=== PATIENT | male | born 1985 | race African-American/Black ===

== ENCOUNTER 2016-11-13 05:23 | Inpatient (IN) | payer OTHER ==
[~2016-11-13] VITALS: Ht 188 cm; Wt 88.5 kg
[2016-11-13] MEDS ORDERED: ASPIRIN 81 MG TAB.CHEW ONE (05:34)
[2016-11-13] MEDS ORDERED: NITROGLYCERIN 0.4 MG/TAB BOTTLE ONE (05:34)
[2016-11-13] MEDS ORDERED: INSU100C10 SQ (05:49)
[2016-11-13] MEDS ORDERED: INSU100V7 SQ (05:49)
[2016-11-13] MEDS ORDERED: MORPHINE SULFATE INJ 4 MG/ML DISP.SYRIN ONE (05:50)
[2016-11-13] MEDS ORDERED: MORPHINE SULFATE INJ 2 MG/ML DISP.SYRIN ONE (05:50)
[2016-11-13] MEDS ORDERED: ONDANSETRON HCL/PF 4 MG/2 ML VIAL ONE (05:50)
[2016-11-13] MEDS ORDERED: IV SET PRIMARY 1 EA INFUS.SET MC ONE (05:53)
[2016-11-13] MEDS ORDERED: IV NS 0.9% 1,000 ML ONE (05:53)
[2016-11-13 05:55] LABS: ABG BASE EXCESS 0.7 mmol/L; ABG HCO3 27.3 mmol/L; ABG PCO2 50.5 mmHg (35.0-45.0); ABG PO2 35.6 mmHg (75.0-100.0); ABG TOTAL HEMOGLOBIN 15.8 G/dL (13.5-18.0); ALLEN TEST Pass; AaDO2 53.7 mmHg; O2Hb 62.8 % (94.0-97.0)
[2016-11-13] MEDS ORDERED: ASPIRIN 81 MG TAB.CHEW PO ONE (06:00)
[2016-11-13] MEDS ORDERED: MORPHINE SULFATE INJ 2 MG/ML DISP.SYRIN IV ONE (06:00)
[2016-11-13] MEDS ORDERED: NITROGLYCERIN 0.4 MG/TAB BOTTLE SL ONE (06:00)
[2016-11-13] MEDS ORDERED: ONDANSETRON HCL/PF 4 MG/2 ML VIAL IV ONE (06:00)
[2016-11-13] MEDS ORDERED: IV NS 0.9% 1,000 ML BAG IV ONE (06:00)
[2016-11-13 06:08] LABS: ANION GAP 15 (5-14); CALCIUM, SERUM 9.2 mg/dL (8.5-10.1); CARBON DIOXIDE 28 mmol/L (21-32); CHLORIDE 97 mmol/L (98-107); CREATININE 1.2 mg/dL (0.6-1.3); GFR 86 mL/min (>60); POTASSIUM 4.2 mmol/L (3.5-5.1); SODIUM SERUM 136 mmol/L (136-145); UREA NITROGEN, BLOOD 15 mg/dL (7-18)
[2016-11-13] MEDS ORDERED: HYDROMORPHONE 1 MG/1 ML DISP.SYRIN ONE (06:08)
[2016-11-13 06:10] LABS: GLUCOSE 457 mg/dL (74-106)
[2016-11-13 06:13] LABS: TROPONIN I < 0.017 ng/mL (0.00-0.056)
[2016-11-13] MEDS ORDERED: CT SWABBABLE VALVE TRANS SET 1 EA INFUS.SET MC ONE (06:19)
[2016-11-13] MEDS ORDERED: IOHEXOL-350 100 ML VIAL IV ONE (06:19)
[2016-11-13] MEDS ORDERED: IV NS 0.9% 250 ML IV ONE (06:19)
[2016-11-13 06:22] LABS: BASOPHILS % (AUTO) 0.4 % (0.0-2.0); DIFF TOTAL % 100 %; EOSINOPHILS # (AUTO) 0.1 /CMM (0.0-0.7); EOSINOPHILS % (AUTO) 2.6 % (0.0-6.0); HEMATOCRIT 45 % (39-51); LYMPHOCYTES % (AUTO) 37.7 % (20.0-44.0); MEAN CORPUSCULAR HEMOGLOBIN 31 PG (26.0-33.0); MEAN CORPUSCULAR HGB CONC 33 g/dl (31.0-36.0); MEAN CORPUSCULAR VOLUME 93 fL (80-96); MONOCYTES # (AUTO) 0.3 /CMM (0.1-1.30); MONOCYTES % (AUTO) 6.4 % (2.0-12.0); NEUTROPHILS # (AUTO) 2.9 /CMM (1.8-8.9); NEUTROPHILS % (AUTO) 52.9 % (43.0-81.0); PLATELET COUNT (AUTO) 174 /CMM (150-450); RED BLOOD CELL COUNT(AUTO) 4.84 MIL/uL (4.5-6.0); WHITE BLOOD COUNT (AUTO) 5.4 K/uL (4.3-11.0)
[2016-11-13] MEDS ORDERED: HYDROMORPHONE 1 MG/1 ML DISP.SYRIN IV ONE (06:30)
[2016-11-13 06:47] LABS: INR 1.02 (0.87-1.13)
[2016-11-13] MEDS ORDERED: INSULIN LISPRO/ASPART 100 UNIT/ML CARTRIDGE SQ SCH (07:30)
[2016-11-13] MEDS ORDERED: INSULIN LISPRO/ASPART 100 UNIT/ML CARTRIDGE SQ ONE (07:30)
[2016-11-13] MEDS ORDERED: ONDA4TAB5 PO (07:55)
[2016-11-13] MEDS ORDERED: OXYC10TA49 PO (07:55)
[2016-11-13 09:53] VITALS: BP 143/87
[2016-11-13] MEDS ORDERED: NITROGLYCERIN 0.4 MG/TAB BOTTLE SL PRN (10:00)
[2016-11-13] MEDS ORDERED: MAGNESIUM HYDROXIDE 30 ML UDC PO PRN (10:00)
[2016-11-13] MEDS ORDERED: DEXTROSE 50%-WATER 50 ML DISP.SYRIN IV PRN (10:00)
[2016-11-13] MEDS ORDERED: MAG HYDROX/AL HYDROX/SIMETH 30 ML UDC PO PRN (10:00)
[2016-11-13] MEDS ORDERED: ACETAMINOPHEN 325 MG TABLET PO PRN (10:00)
[2016-11-13] MEDS: ENOXAPARIN SODIUM 40 MG/0.4 ML DISP.SYRIN SQ SCH (10:17)
[2016-11-13] MEDS: HYDROCODONE/APAP 10/325MG 1 EA TABLET PO PRN (10:18)
[2016-11-13] MEDS: ONDANSETRON HCL/PF 4 MG/2 ML VIAL IVP PRN (10:56)
[2016-11-13] MEDS: BLOOD SUGAR DIAGNOSTIC 1 EACH STRIP VI SCH ×3 (11:51→21:45)
[2016-11-13 12:00] VITALS: BP_SYST 116; BP_DIAS 71; BP_DIAS 75
[2016-11-13] MEDS: MORPHINE SULFATE INJ 2 MG/ML DISP.SYRIN IV PRN (13:30)
[2016-11-13 16:00] VITALS: BP 129/81
[2016-11-13] MEDS: INSULIN REGULAR, HUMAN 100 UNIT/ML 3 ML VIAL SQ PRN (17:31)
[2016-11-13 20:00] VITALS: BP 112/73
[2016-11-13] MEDS: METOPROLOL TARTRATE 25 MG TABLET PO SCH (21:45)
[2016-11-13] MEDS: *INSULIN REGULAR(HUMULIN R)HUM 100 UNIT/ML VIAL SQ PRN (21:45)
[2016-11-13] MEDS ORDERED: INSULIN DETEMIR 100 UNIT/ML CARTRIDGE SQ SCH (22:00)
[2016-11-14] VITALS (7 sets, daily range): BP systolic 109–126; BP diastolic 63–74
[2016-11-14 01:51] LABS: BASOPHILS % (AUTO) 0.7 % (0.0-2.0); DIFF TOTAL % 100 %; EOSINOPHILS # (AUTO) 0.2 /CMM (0.0-0.7); EOSINOPHILS % (AUTO) 4.3 % (0.0-6.0); HEMATOCRIT 41 % (39-51); HEMOGLOBIN 13.9 g/dL (13.5-17.5); LYMPHOCYTES # (AUTO) 2.2 /CMM (0.8-4.8); LYMPHOCYTES % (AUTO) 46.5 % (20.0-44.0); MEAN CORPUSCULAR HEMOGLOBIN 32 PG (26.0-33.0); MEAN CORPUSCULAR HGB CONC 34 g/dl (31.0-36.0); MEAN CORPUSCULAR VOLUME 93 fL (80-96); MONOCYTES # (AUTO) 0.5 /CMM (0.1-1.30); MONOCYTES % (AUTO) 9.4 % (2.0-12.0); NEUTROPHILS # (AUTO) 1.9 /CMM (1.8-8.9); NEUTROPHILS % (AUTO) 39.1 % (43.0-81.0); PLATELET COUNT (AUTO) 167 /CMM (150-450); RED BLOOD CELL COUNT(AUTO) 4.42 MIL/uL (4.5-6.0); WHITE BLOOD COUNT (AUTO) 4.8 K/uL (4.3-11.0)
[2016-11-14 02:29] LABS: CALCIUM, SERUM 8.4 mg/dL (8.5-10.1); CREATININE 1.3 mg/dL (0.6-1.3); POTASSIUM 4.1 mmol/L (3.5-5.1)
[2016-11-14] MEDS: BLOOD SUGAR DIAGNOSTIC 1 EACH STRIP VI SCH ×4 (06:42→21:49)
[2016-11-14] MEDS: INSULIN REGULAR, HUMAN 100 UNIT/ML 3 ML VIAL SQ PRN ×2 (06:45→12:00)
[2016-11-14] MEDS: METOPROLOL TARTRATE 25 MG TABLET PO SCH ×2 (08:47→21:00)
[2016-11-14] MEDS: PANTOPRAZOLE 40 MG TABLET.DR PO SCH (08:47)
[2016-11-14] MEDS: ASPIRIN 325 MG TABLET PO SCH (08:47)
[2016-11-14] MEDS: ENOXAPARIN SODIUM 40 MG/0.4 ML DISP.SYRIN SQ SCH (10:11)
[2016-11-14] MEDS ORDERED: Magnesium 1GM/D5W 100ML PREMIX 100 ML IV SCH (11:00)
[2016-11-14] MEDS ORDERED: SECONDARY IV SET 1 EA INFUS.SET MC ONE (11:02)
[2016-11-14] MEDS ORDERED: IV SET PRIMARY PUMP SET 1 EA INFUS.SET MC ONE (11:02)
[2016-11-14] MEDS: IV NS 0.9% 1,000 ML IV PRN (11:16)
[2016-11-14] MEDS: MORPHINE SULFATE INJ 2 MG/ML DISP.SYRIN IV PRN ×2 (11:58→12:54)
[2016-11-14] MEDS: HYDROCODONE/APAP 10/325MG 1 EA TABLET PO PRN ×2 (14:05→21:48)
[2016-11-14] MEDS: HYDROMORPHONE 1 MG/1 ML DISP.SYRIN IV PRN (19:00)
[2016-11-14] MEDS: ONDANSETRON HCL/PF 4 MG/2 ML VIAL IVP PRN (19:41)
[2016-11-14] MEDS ORDERED: INSULIN DETEMIR 100 UNIT/ML CARTRIDGE SQ SCH (22:00)
[2016-11-14] MEDS ORDERED: ATORVASTATIN 10 MG TABLET PO SCH (22:00)
[2016-11-14] MEDS: *INSULIN REGULAR(HUMULIN R)HUM 100 UNIT/ML VIAL SQ PRN (23:41)
[2016-11-15] VITALS: BP 122/79
[2016-11-15] MEDS ORDERED: diphenhydrAMINE HCL 50 MG/ML VIAL ONE (00:11)
[2016-11-15] MEDS ORDERED: diphenhydrAMINE HCL 50 MG/ML VIAL IV PRN (00:30)
[2016-11-15 04:00] VITALS: BP 121/70
[2016-11-15] MEDS: BLOOD SUGAR DIAGNOSTIC 1 EACH STRIP VI SCH ×3 (06:54→17:49)
[2016-11-15] MEDS: PANTOPRAZOLE 40 MG TABLET.DR PO SCH (07:30)
[2016-11-15 08:00] VITALS: BP 105/60
[2016-11-15] MEDS: ASPIRIN 325 MG TABLET PO SCH (08:31)
[2016-11-15] MEDS: IV NS 0.9% 1,000 ML IV PRN (08:31)
[2016-11-15] MEDS: METOPROLOL TARTRATE 25 MG TABLET PO SCH (08:31)
[2016-11-15] MEDS: ENOXAPARIN SODIUM 40 MG/0.4 ML DISP.SYRIN SQ SCH (09:34)
[2016-11-15] MEDS: ONDANSETRON HCL/PF 4 MG/2 ML VIAL IVP PRN (10:32)
[2016-11-15] MEDS ORDERED: IOHEXOL-350 100 ML VIAL IV ONE ×2 (10:38→11:38)
[2016-11-15] MEDS ORDERED: IV NS 0.9% 250 ML IV ONE (10:38)
[2016-11-15 12:00] VITALS: BP 108/68
[2016-11-15] MEDS ORDERED: METOPROLOL TARTRATE INJ 5 MG/5 ML AMPUL IVP ONE (12:00)
[2016-11-15 12:02] VITALS: BP 108/68
[2016-11-15] MEDS ORDERED: NITROGLYCERIN 0.4 MG/TAB BOTTLE ONE (12:04)
[2016-11-15] MEDS: HYDROMORPHONE 1 MG/1 ML DISP.SYRIN IV PRN ×2 (12:40→19:36)
[2016-11-15] MEDS: INSULIN REGULAR, HUMAN 100 UNIT/ML 3 ML VIAL SQ PRN (12:42)
[2016-11-15 16:00] VITALS: BP 104/64
[2016-11-15] MEDS: *INSULIN REGULAR(HUMULIN R)HUM 100 UNIT/ML VIAL SQ PRN (17:34)
[2016-11-15] MEDS: HYDROCODONE/APAP 10/325MG 1 EA TABLET PO PRN (17:49)
== END 2016-11-15 20:08 | disposition home or self-care (01) | DRG 206 ==
LOC: ER 05:26 → TELE1 09:03 → MEDSG1 11-15 18:44
PROVIDERS: ADMIT Family Medicine; ATTEND Family Medicine
DX: M94.0 Chondrocostal junction syndrome [Tietze] (principal); E10.65 Type 1 diabetes mellitus with hyperglycemia; I48.0 Paroxysmal atrial fibrillation; E78.1 Pure hyperglyceridemia; G89.29 Other chronic pain; I34.0 Nonrheumatic mitral (valve) insufficiency; Z79.4 Long term (current) use of insulin; Z98.890 Other specified postprocedural states
CPT/HCPCS: 36415; 36600; 71010-TC; 75574; 80048-TC; 80061-TC; 82962-TC; 83735-TC; 84100-TC; 84484-TC; 85025-TC; 85730-TC; 87081-TC; 93307-TC; A4606; A6402; J1170; J1200; J1650; J1815; J2270; J2405; J3475; J3490; J7030; J7050; Q9967; Z7610